=== PATIENT | female | born 1995 | race Caucasian/White ===

== ENCOUNTER 2019-01-15 15:00 | Observation (INO) | payer MEDICAID ==
[~2019-01-15] VITALS: Ht 170.2 cm; Wt 112.0 kg
[2019-01-15 15:35] VITALS: BP 122/66
[2019-01-15] MEDS ORDERED: INFLUENZA VACCINE QUAD 0.5 ML SYR IMVAC PRN (15:35)
[2019-01-15] MEDS ORDERED: PREN-380 PO (15:40)
== END 2019-01-15 17:20 | disposition home or self-care (01) ==
LOC: EDBD 15:00 → MFCC 15:00
PROVIDERS: ADMIT Obstetrics & Gynecology; ATTEND Obstetrics & Gynecology
DX: O36.8130 Decreased fetal movements, third trimester, not applicable or unspecified (principal); Z3A.39 39 weeks gestation of pregnancy
CPT/HCPCS: 76819; 81000; G0378; Q0092

== ENCOUNTER 2019-01-16 23:17 | Inpatient (IN) | payer MEDICAID ==
[~2019-01-16] VITALS: Ht 170.2 cm; Wt 111.1 kg
[~2019-01-16 23:17] MED LIST: PREN-380 PO
[2019-01-16] MEDS ORDERED: AMPICILLIN 2,000 MG in NACL 0.9% 100 ML IV SCH (23:50)
[2019-01-16] MEDS ORDERED: LACTATED RINGERS 1,000 ML IV SCH (23:50)
[2019-01-17 00:26] LABS: BASOPHILS % (AUTO) 0.2 % (0.0-2.0); EOSINOPHILS # (AUTO) 0.3 K/uL (0-0.4); EOSINOPHILS % (AUTO) 2.8 % (0.0-4.0); HEMATOCRIT 36.5 % (36-48); HEMOGLOBIN 11.9 g/dL (12.0-16.0); LYMPHOCYTES # (AUTO) 2.2 K/uL (2.5-16.5); LYMPHOCYTES % (AUTO) 18.5 % (20.5-51.1); MEAN CORPUSCULAR HEMOGLOBIN 27 pg (27-31); MEAN CORPUSCULAR HGB CONC 33 g/dL (33-37); MONOCYTES # (AUTO) 0.6 K/uL (0.8-1.0); MONOCYTES % (AUTO) 5.1 % (1.7-9.3); NEUTROPHILS # (AUTO) 8.9 K/uL (1.8-7.7); NEUTROPHILS % (AUTO) 73.4 % (42.2-75.2); PLATELET COUNT (AUTO) 231 K/uL (140-450); RED BLOOD CELL COUNT(AUTO) 4.34 MIL/uL (4.20-5.40); RED CELL DISTRIBUTION WIDTH 14.6 % (11.6-13.7); WHITE BLOOD COUNT (AUTO) 12.1 K/uL (4.8-10.8)
[2019-01-17 00:27] LABS: APPEARANCE,URINE SL CLOUDY (CLEAR); BILIRUBIN,URINE NEGATIVE (NEGATIVE); BLOOD, URINE TRACE-I (NEGATIVE); COLOR,URINE YELLOW (YELLOW); LEUKOCYTE ESTERASE ,URINE NEGATIVE (NEGATIVE); NITRITE, URINE NEGATIVE (NEGATIVE); PH,URINE 6.5 (5.0-9.0); UGLUCOSE NEGATIVE (NEGATIVE)
[2019-01-17 00:36] LABS: CARBON DIOXIDE 25.7 mmol/L (21-32); CREATININE 0.5 mg/dL (0.6-1.3); POTASSIUM 3.7 mmol/L (3.5-5.1)
[2019-01-17 00:39] LABS: WBC,URINE 0-5 /HPF (0-5)
[2019-01-17 00:41] LABS: ALBUMIN 2.8 g/dL (3.4-5.0); TOTAL BILIRUBIN 0.3 mg/dL (0.0-1.0)
[2019-01-17] MEDS ORDERED: MISOPROSTOL 25 MCG TAB VG SCH ×2 (01:00→06:00)
[2019-01-17] MEDS ORDERED: AMPICILLIN 2,000 MG VIAL ONE (01:13)
[2019-01-17] MEDS ORDERED: MISOPROSTOL 25 MCG TAB ONE ×2 (01:15→07:44)
[2019-01-17 02:05] VITALS: BP 113/60
[2019-01-17] MEDS ORDERED: AMPICILLIN 1,000 MG VIAL ONE ×4 (04:48→18:42)
[2019-01-17] MEDS: AMPICILLIN 1,000 MG in NACL 0.9% 50 ML IV SCH ×3 (05:16→13:52)
--- NOTE | 2019-01-17 08:51 | NUR ---
PATIENT HAS BEEN SCREENED AND CATEGORIZED LOW NUTRITION RISK. PATIENT WILL BE SEEN WITHIN 7 DAYS OF ADMISSION. 01/23/[address]
[2019-01-17] MEDS ORDERED: BUPIVACAINE 0.125%/NS PREMIX 250 ML ONE (13:33)
[2019-01-17] MEDS ORDERED: fentaNYL 0.05 MG/ML VIAL ONE (13:33)
[2019-01-17] MEDS ORDERED: OXYTOCIN 20 UNITS in LACTATED RINGERS 1,000 ML IV SCH (15:40)
[2019-01-17] MEDS ORDERED: OXYTOCIN 20 UNITS/LR PREMIX 1,000 ML IV ONE (15:43)
[2019-01-17] MEDS ORDERED: OXYTOCIN 10 UNITS/ML VIAL IM PRN (21:35)
[2019-01-17] MEDS ORDERED: METHYLERGONOVINE 0.2 MG/ML AMP IM PRN (21:35)
[2019-01-17] MEDS ORDERED: MEASLES, MUMPS, AND RUBELLA 1 VIAL SQVAC PRN (21:35)
[2019-01-17] MEDS ORDERED: BENZOCAINE/MENTHOL 20%-0.5% 60 GM CAN TP PRN (21:35)
[2019-01-17] MEDS ORDERED: METHYLERGONOVINE 0.2 MG TAB PO PRN (21:35)
[2019-01-18] MEDS: IBUPROFEN 800 MG TAB PO PRN ×2 (08:09→15:39)
[2019-01-18 09:38] LABS: HEMATOCRIT 37.4 % (36-48); HEMOGLOBIN 12.1 g/dL (12.0-16.0)
[2019-01-19] MEDS: IBUPROFEN 800 MG TAB PO PRN (01:16)
== END 2019-01-19 15:05 | disposition home or self-care (01) | DRG 560 ==
LOC: MLD 23:17 → MFCC 01-18 00:40
PROVIDERS: ADMIT Obstetrics & Gynecology; ATTEND Obstetrics & Gynecology
PROC: 10E0XZZ Delivery of Products of Conception, External Approach (ICD-10-PCS; principal; 2019-01-17)
PROC: 0HQ9XZZ Repair Perineum Skin, External Approach (ICD-10-PCS; 2019-01-17)
PROC: 10907ZC Drainage of Amniotic Fluid, Therapeutic from Products of Conception, Via Natural or Artificial Opening (ICD-10-PCS; 2019-01-17)
PROC: 3E0P7VZ Introduction of Hormone into Female Reproductive, Via Natural or Artificial Opening (ICD-10-PCS; 2019-01-17)
PROC: 00HU33Z Insertion of Infusion Device into Spinal Canal, Percutaneous Approach (ICD-10-PCS; 2019-01-17)
PROC: 3E0R3BZ Introduction of Anesthetic Agent into Spinal Canal, Percutaneous Approach (ICD-10-PCS; 2019-01-17)
DX: O99.824 Streptococcus B carrier state complicating childbirth (principal); Z37.0 Single live birth; O70.0 First degree perineal laceration during delivery; Z3A.39 39 weeks gestation of pregnancy
CPT/HCPCS: 36415; 51702; 59409; 76805; 80053; 81001; 85018; 85025; 86592; 86886; 86900; 86901; J0290; J2590; J3010; J3490; J7120; Q0092